=== PATIENT | female | born 1995 | race Caucasian/White ===

== ENCOUNTER 2021-03-03 06:35 | Emergency (ER) | payer MEDICAID ==
[~2021-03-03] VITALS: Ht 160 cm; Wt 84.0 kg
[2021-03-03 06:54] VITALS: BP 121/73
--- NOTE | 2021-03-03 07:02 | NUR ---
PT IN RR COLLECTING CLEAN CATCH.
--- NOTE | 2021-03-03 07:10 | NUR ---
Dr. Richardson is evaluating patient at bedside
--- NOTE | 2021-03-03 07:12 | NUR ---
25 y/o F BIB self from home c/o vaginal bleeding x 4 days. Patient A&Ox4, ambulatory, states she began spotting 4 days ago and woke up this morning with worsening "bright red bleeding." Pt states small clots with bleeding. Pt also states associated nausea without vomiting. Reports abdominal bloating, and suprapubic pain, 5/10, cramping/intermittent, non-radiating pain. Denies vaginal discharge, odor. Pt placed into a gown. UA collected. G3 T0 L1. LMP: Dec 06. Bed locked in lowest position, side rails x 1, call light in reach. PMH: Denies Meds: prenatals Sx: denies NKA
--- NOTE | 2021-03-03 07:26 | NUR ---
Blood sample and UA collected, handed to CPT Colleen at ER bedside
--- NOTE | 2021-03-03 07:31 | NUR ---
US tech at bedside
[2021-03-03 07:32] LABS: BASOPHILS % (AUTO) 0.5 % (0.0-2.0); EOSINOPHILS # (AUTO) 0.4 K/uL (0-0.4); EOSINOPHILS % (AUTO) 7.8 % (0.0-4.0); HEMATOCRIT 35.8 % (36-48); HEMOGLOBIN 12.1 g/dL (12.0-16.0); LYMPHOCYTES # (AUTO) 0.6 K/uL (2.5-16.5); MEAN CORPUSCULAR HEMOGLOBIN 29 pg (27-31); MEAN CORPUSCULAR HGB CONC 34 g/dL (33-37); MEAN CORPUSCULAR VOLUME 84.7 fL (80-94); MONOCYTES # (AUTO) 0.4 K/uL (0.8-1.0); MONOCYTES % (AUTO) 8.8 % (1.7-9.3); NEUTROPHILS # (AUTO) 3.4 K/uL (1.8-7.7); NEUTROPHILS % (AUTO) 69.9 % (42.2-75.2); PLATELET COUNT (AUTO) 310 K/uL (140-450); RED BLOOD CELL COUNT(AUTO) 4.23 MIL/uL (4.20-5.40); RED CELL DISTRIBUTION WIDTH 14.3 % (11.6-13.7); WHITE BLOOD COUNT (AUTO) 4.8 K/uL (4.8-10.8)
[2021-03-03 08:06] LABS: BILIRUBIN,URINE NEGATIVE (NEGATIVE); COLOR,URINE YELLOW (YELLOW); LEUKOCYTE ESTERASE ,URINE NEGATIVE (NEGATIVE); NITRITE, URINE NEGATIVE (NEGATIVE); UGLUCOSE NEGATIVE (NEGATIVE)
[2021-03-03 08:15] LABS: APPEARANCE,URINE CLEAR (CLEAR)
[2021-03-03 08:16] LABS: BLOOD, URINE 1+ (NEGATIVE); RBC,URINE 0-5 /HPF (0-5); WBC,URINE 0-5 /HPF (0-5)
--- NOTE | 2021-03-03 09:20 | NUR ---
Patient discharged with v/s stable. Written and verbal after care instructions given and explained. Patient verbalized understanding. Ambulatory with steady gait. All questions addressed prior to discharge. Advised to follow up with PMD. MANAGER [employer] resource packet and results provided to patient.
== END 2021-03-03 09:20 | disposition home or self-care (01) ==
LOC: MED 06:35
DX: O20.8 Other hemorrhage in early pregnancy (principal); O21.8 Other vomiting complicating pregnancy; Z3A.01 Less than 8 weeks gestation of pregnancy; O20.0 Threatened abortion
CPT/HCPCS: 36415; 76801; 76817; 81001; 84702; 85025; 86900; 86901; 99284; Q0092

== ENCOUNTER 2021-03-06 20:08 | Emergency (ER) | payer MEDICAID ==
[~2021-03-06] VITALS: Ht 162.6 cm; Wt 85.7 kg
[2021-03-06 20:18] VITALS: BP 124/76
--- NOTE | 2021-03-06 20:23 | NUR ---
PATIENT AMBULATED TO THE BATHROOM FOR URINE COLLECTION AND SENT TO [facility]
== END 2021-03-06 21:25 | disposition left against medical advice (07) ==
LOC: MED 20:08
DX: N93.9 Abnormal uterine and vaginal bleeding, unspecified (principal); Z53.21 Procedure and treatment not carried out due to patient leaving prior to being seen by health care provider

== ENCOUNTER 2021-03-08 06:05 | Emergency (ER) | payer MEDICAID ==
[~2021-03-08] VITALS: Ht 162.6 cm; Wt 83.9 kg
--- NOTE | 2021-03-08 06:15 | NUR ---
PT AMBULATED TO BED 09.
[2021-03-08 06:20] VITALS: BP 137/89
--- NOTE | 2021-03-08 06:45 | NUR ---
MD AT BEDSIDE EVALUATING PT
--- NOTE | 2021-03-08 06:53 | NUR ---
LABS AT BEDSIDE.
--- NOTE | 2021-03-08 07:00 | NUR ---
ULTRA SOUND AT BEDSIDE.
[2021-03-08 07:03] LABS: BASOPHILS % (AUTO) 0.4 % (0.0-2.0); EOSINOPHILS # (AUTO) 0.5 K/uL (0-0.4); EOSINOPHILS % (AUTO) 6.2 % (0.0-4.0); HEMATOCRIT 34.3 % (36-48); HEMOGLOBIN 11.7 g/dL (12.0-16.0); LYMPHOCYTES # (AUTO) 0.9 K/uL (2.5-16.5); LYMPHOCYTES % (AUTO) 10.5 % (20.5-51.1); MEAN CORPUSCULAR HEMOGLOBIN 29 pg (27-31); MEAN CORPUSCULAR HGB CONC 34 g/dL (33-37); MEAN CORPUSCULAR VOLUME 84.2 fL (80-94); MONOCYTES # (AUTO) 0.6 K/uL (0.8-1.0); MONOCYTES % (AUTO) 6.8 % (1.7-9.3); NEUTROPHILS # (AUTO) 6.5 K/uL (1.8-7.7); NEUTROPHILS % (AUTO) 76.1 % (42.2-75.2); PLATELET COUNT (AUTO) 317 K/uL (140-450); RED BLOOD CELL COUNT(AUTO) 4.08 MIL/uL (4.20-5.40); RED CELL DISTRIBUTION WIDTH 13.8 % (11.6-13.7); WHITE BLOOD COUNT (AUTO) 8.6 K/uL (4.8-10.8)
--- NOTE | 2021-03-08 07:18 | NUR ---
RECEIVED REPORT FROM NARINDER BAINS, ASSUMED CARE AT THIS TIME.
--- NOTE | 2021-03-08 08:22 | NUR ---
Stood in as female Forest Technology Professor for Dr. Richardson, accompanied female patient for Pelvic Exam.
[2021-03-08] MEDS ORDERED: MISOPROSTOL 100 MCG TAB PO ONE (08:25)
[2021-03-08] MEDS ORDERED: KETOROLAC 30 MG/ML VIAL IVP ONE (08:25)
[2021-03-08] MEDS ORDERED: NACL 0.9% 1,000 ML IV ONE (08:25)
--- NOTE | 2021-03-08 08:40 | NUR ---
PATIENT AMBULATED WITH STEADY TO RESTROOM.
[2021-03-08] MEDS ORDERED: fentaNYL citrate 0.05 MG/ML VIAL IVP ONE (09:20)
--- NOTE | 2021-03-08 10:05 | NUR ---
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 ALL NEEDS MET AT THIS TIME, WILL CONTINUE TO MONITOR.
[2021-03-08] MEDS ORDERED: ACET-8386 PO (11:00)
[2021-03-08] MEDS ORDERED: NAPR-54 PO (11:00)
[2021-03-08 11:12] VITALS: BP 118/79
--- NOTE | 2021-03-08 11:12 | NUR ---
Patient discharged with v/s stable. Written and verbal after care instructions ABOUT MISCARRIAGE given and explained. Patient alert, oriented and verbalized understanding of instructions. Ambulatory with steady gait. All questions addressed prior to discharge. ID band removed. Patient advised to follow up with PMD. Rx of NAPROSYN AND NORCO 5-325 given. Patient educated on indication of medication including possible reaction and side effects. EDUCATED ON USE OF NARCOTICS, ADVISED TO NOT DRINK OR DRIVE WHILE USING. Opportunity to ask questions provided and answered.
== END 2021-03-08 11:12 | disposition home or self-care (01) ==
LOC: MED 06:05
DX: O03.4 Incomplete spontaneous abortion without complication (principal); Z79.899 Other long term (current) drug therapy
CPT/HCPCS: 36415; 76817; 84702; 85025; 96361; 96374; 96375; 99284; J1885; J3010; J7030; Q0092

== ENCOUNTER 2022-06-04 22:26 | Emergency (ER) | payer SELFPAY ==
[~2022-06-04] VITALS: Ht 165.1 cm; Wt 72.6 kg
[~2022-06-04 22:26] MED LIST: ACET-8905 PO; NAPR-54 PO
[2022-06-04 22:28] VITALS: BP 115/79
--- NOTE | 2022-06-04 22:31 | NUR ---
TO LOBBY A/W BED AMBULATORY
[2022-06-05] MEDS ORDERED: KETOROLAC 15 MG/ML VIAL IM ONE (01:10)
[2022-06-05] MEDS ORDERED: AMOX-1230 PO (01:11)
[2022-06-05] MEDS ORDERED: IBUP-2213 PO (01:11)
--- NOTE | 2022-06-05 01:33 | NUR ---
Patient discharged with v/s stable. Written and verbal after care instructions given and explained. Patient alert, oriented and verbalized understanding of instructions. Ambulatory with steady gait. All questions addressed prior to discharge. ID band removed. Patient advised to follow up with PMD. Rx of Amoxicillin/potassium Clav and Ibuprofen given. Opportunity to ask questions provided and answered.
== END 2022-06-05 01:33 | disposition home or self-care (01) ==
LOC: MED 22:26
DX: H66.91 Otitis media, unspecified, right ear (principal); R42 Dizziness and giddiness; I10 Essential (primary) hypertension; Z79.899 Other long term (current) drug therapy
CPT/HCPCS: 96372; 99283; J1885

== ENCOUNTER 2022-06-09 07:57 | Emergency (ER) | payer SELFPAY ==
[~2022-06-09] VITALS: Ht 162.6 cm; Wt 72.6 kg
[~2022-06-09 07:57] MED LIST changes: +AMOX-1230 PO; +IBUP-2213 PO
[2022-06-09 08:11] VITALS: BP 142/88
--- NOTE | 2022-06-09 08:11 | NUR ---
Oj dennis in EDM - 06/09/22 at 0905 by [id number] Diego swab obtained labeled and sent to lab. IV established and labs handed to dental laboratory manager at bedside.
[2022-06-09] MEDS ORDERED: HYDROcodone/APAP 5/325 MG 1 TAB TAB PO ONE (08:35)
[2022-06-09] MEDS ORDERED: COROTSOL RIGHT EAR (08:43)
[2022-06-09] MEDS ORDERED: LIDO100S RIGHT EAR (08:43)
[2022-06-09] MEDS ORDERED: ACET-8905 PO (08:43)
--- NOTE | 2022-06-09 09:05 | NUR ---
Pt bibs for R ear pain x 9 days. Pt has been seen in ed for same reason, but came in for worsening pain. MD has seen pt. Pt a/o x 4, vs, no ss of acute distress, breathing equal and unlabored, speech clear. Pain is 8/10, ache, non radiating, constant, nothing helps or worsens pain. Md has seen pt and gave order for dc. ACI/PX given and reviewed with pt. Pt verbalized understanding and will follow up with primary.
== END 2022-06-09 09:09 | disposition home or self-care (01) ==
LOC: MED 07:57
DX: H66.91 Otitis media, unspecified, right ear (principal); H60.91 Unspecified otitis externa, right ear; I10 Essential (primary) hypertension; Z79.899 Other long term (current) drug therapy
CPT/HCPCS: 99283